=== PATIENT | male | born 1980 | race African-American/Black ===

== ENCOUNTER 2020-03-31 19:34 | Emergency (ER) | payer OTHER ==
[~2020-03-31] VITALS: Ht 165.1 cm; Wt 85.7 kg
[~2020-03-31 19:34] MED LIST: EC-NAPROSYN500 MG PO; TYLENOL32 MG/ML PO
[2020-04-01] MEDS ORDERED: BACIT OP (04:05)
[2020-04-01] MEDS ORDERED: LOSARTAN POTASS50 MG PO (04:05)
[2020-04-01] MEDS ORDERED: [UNRECOGNIZED DRUG - OTHER] OP (04:05)
== END 2020-04-01 04:15 | disposition home or self-care (01) ==
LOC: ER 19:34
DX: S61.220A Laceration with foreign body of right index finger without damage to nail, initial encounter (principal); W26.0XXA Contact with knife, initial encounter; Y93.89 Activity, other specified; Y92.090 Kitchen in other non-institutional residence as the place of occurrence of the external cause; Y99.8 Other external cause status; I16.0 Hypertensive urgency; I10 Essential (primary) hypertension